=== PATIENT | male | born 1955 | race Two or more races ===

== ENCOUNTER → 2016-11-20 | Outpatient (CLI) | payer OTHER ==
[~2016-11-20] MED LIST: AMLO-218 PO; ASPI-664 PO; DARU600T3; FLUT9.9S NASAL; GABA100C; GEMF600T PO; IBUP800T25 PO; LISI2.5T59; LISI2.5T59 PO; METF-382 PO; METF500T4 PO; RALT400T4 PO; SERT100T PO; SERT50TA; TRUV PO; ULT50 PO; VENL100T19; [UNRECOGNIZED DRUG - CODE] TD
--- NOTE | 2016-11-20 23:38 | HKNOTE ---
DATE OF SERVICE: 11/20/2016 The patient comes for preoperative evaluation. He is scheduled to have operative arthroscopy on his right knee on 11/22/2016. He has been cleared for surgery by Dr. Valencia Helms. 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 He recently started ne w HIV drug, which is supposed to be very potent. The MRI scan of his knee shows that he has torn medial and lateral menisci in the posterior horns an d also fairly extensive arthritis. He is warned that the knee will not make a full recovery from th e arthroscopy, but hopefully will be improved, but no guarantees can be made. Postoperative course was discussed with him and he is given a prescription for pain management. Dictated By: ARJUN MILLER/BOOKER Conf#: [id number] DID#: [id number]
== END | disposition home or self-care (01) ==
LOC: HKI 13:56
DX: Z01.818 Encounter for other preprocedural examination (principal)
CPT/HCPCS: G0463

== ENCOUNTER 2016-11-22 06:59 | Day surgery (SDC) | payer OTHER ==
[2016-11-21 10:02] VITALS: BMI 38.3
[~2016-11-22] VITALS: Ht 160 cm; Wt 95.0 kg
[2016-11-22] VITALS (13 sets, daily range): BP systolic 119–156; BP diastolic 56–95; PULSE 82–91; RESP 14–23; Ht 160 cm; Wt 95.0 kg
[~2016-11-22 06:59] MED LIST changes: -LISI2.5T59 PO; -METF-382 PO
[2016-11-22] MEDS ORDERED: LISI2.5T59 PO (07:40)
[2016-11-22] MEDS ORDERED: METF-382 PO (07:42)
[2016-11-22] MEDS ORDERED: SERT100T PO (07:43)
[2016-11-22] MEDS ORDERED: CELECOXIB 200 MG CAP PO ONE (08:30)
[2016-11-22] MEDS ORDERED: oxyCODONE (CR) 10 MG TAB [oxyCONTIN] PO ONE (08:30)
[2016-11-22] MEDS ORDERED: VANCOMYCIN 1 GM (PMX) 250 ML IVPB ONE (08:30)
[2016-11-22] MEDS ORDERED: DEXAMETHASONE 4 MG/ML 1 ML INJ IV ONE (08:30)
[2016-11-22] MEDS ORDERED: ONDANSETRON 4 MG INJ IV ONE (08:30)
[2016-11-22] MEDS ORDERED: LANSOPRAZOLE 30 MG CAP PO ONE (08:30)
[2016-11-22] MEDS ORDERED: ACETAMINOPHEN 1000MG/100ML IV 100 ML IVPB ONE (08:30)
[2016-11-22] MEDS ORDERED: ROPIVACAINE 0.5 % 30 ML VIAL ONE (09:14)
[2016-11-22] MEDS ORDERED: BUPIVACAINE 0.25%/EPI (SDV) 30 ML INJ ONE (09:15)
[2016-11-22] MEDS ORDERED: KETOROLAC 30 MG INJ ONE (09:15)
[2016-11-22] MEDS ORDERED: morphine SULFATE/PF (10 MG/10 ML) INJ ONE (09:15)
[2016-11-22] MEDS ORDERED: PROPOFOL 20 ML ONE (09:42)
[2016-11-22] MEDS ORDERED: LIDOCAINE 2% (SDV) 5 ML INJ ONE (09:42)
[2016-11-22] MEDS ORDERED: MIDAZOLAM 1 MG/ML 2 ML INJ ONE (09:43)
[2016-11-22] MEDS ORDERED: FENTAnyl 50 MCG/ML VIAL ONE (09:53)
[2016-11-22] MEDS ORDERED: ONDANSETRON 4 MG INJ ONE (09:57)
[2016-11-22] MEDS ORDERED: METOCLOPRAMIDE 10 MG INJ ONE (09:57)
[2016-11-22] MEDS ORDERED: FAMOTIDINE 20 MG INJ ONE (09:57)
[2016-11-22] MEDS ORDERED: PHENYLephrine (100 MCG/ML) 5ML SYG ONE (09:59)
[2016-11-22] MEDS ORDERED: EPHEDrine SULFATE 50 MG/5 ML SYG ONE (10:30)
[2016-11-22] MEDS ORDERED: FENTAnyl 50 MCG/ML VIAL IV PRN (10:30)
[2016-11-22] MEDS ORDERED: HYDROmorphONE (0.2 MG/ML) 10ML SYG IV PRN (10:30)
[2016-11-22] MEDS ORDERED: oxyCODONE 5 MG TAB PO PRN ×2 (10:30)
[2016-11-22] MEDS ORDERED: MEPERIDINE 25 MG INJ IV PRN (10:30)
[2016-11-22] MEDS ORDERED: ONDANSETRON 4 MG INJ IV PRN ×2 (10:30→11:30)
[2016-11-22] MEDS ORDERED: PROCHLORPERAZINE 10 MG INJ IV PRN (10:30)
[2016-11-22] MEDS ORDERED: DIPHENHYDRAMINE 50 MG INJ IV PRN (10:30)
[2016-11-22] MEDS ORDERED: HYDROmorphONE 2 MG/ML SYG ONE (10:59)
[2016-11-22] MEDS ORDERED: KETOROLAC 15 MG INJ IM STA (11:21)
[2016-11-22] MEDS ORDERED: HYDROCODONE/APAP (10/325) TAB PO PRN (11:30)
[2016-11-22] MEDS ORDERED: ACETAMINOPHEN 1000MG/100ML IV 100 ML IVPB SCH (11:30)
[2016-11-22] MEDS ORDERED: morphine 10 MG INJ IM PRN (11:30)
--- NOTE | 2016-11-22 13:23 | OPR ---
DATE OF OPERATION: 11/22/2016 SURGEON: Raza Whittaker MD HYDROLOGY PROFESSOR: None. ANESTHESIOLOGIST: PREOPERATIVE DIAGNOSIS: Torn medial and lateral meniscus of the right knee. POSTOPERATIVE DIAGNOSES: 1. Torn medial and lateral meniscus of the right knee. 2. Severe degenerative osteoarthritis of the lateral compartment of the right knee. PROCEDURE: 1. Diagnostic arthroscopy. 2. Partial medial meniscectomy. 3. Partial lateral meniscectomy. FINDINGS AT SURGERY: The patellofemoral joint was found to be relatively normal in appearance for a man of his age. The articular surfaces of the medial compartment were relatively normal as well. The tibial plateau on the lateral side shows severe degenerative changes with complete erosion down to the subchondral bone. There was eburnation of the subchondral bone. The lateral femoral condyle showed similar changes, but to a much lesser degree. The medial meniscus showed compound tears of the posterior third. The rest of the medial meniscus was intact and normal. The lateral meniscus sh owed compound tears of the middle third. There was also a separate tear of the posterior horn/root of the lateral meniscus. The rest of the lateral meniscus was normal. Since the lateral meniscal t ears encompassed the middle third it therefore compromised the bridge of meniscus that extends over the popliteus tendon. This entire bridge section had to be removed in a subtotal way in order to ob tain stability of remaining meniscus. DESCRIPTION OF PROCEDURE: Under general anesthetic, the right leg was prepared and draped in the ual sterile fashion. A tourniquet around the right thigh was inflated to a pressure of 250 mmHg for a total period of 27 minutes. Standard inferomedial and inferolateral portals were used. The knee was systematically inspected and the above findings were noted. Using a variety of basket forceps and the motorized intraarticular shaver, a partial medial meniscec livia was performed. Remaining meniscus was balanced and stable. The camera was now moved to the la teral compartment, observing the cruciate ligaments on the way they were intact and normal in appear ance. The lateral meniscus showed compound tears of the middle third. These were highly unstable s egments of meniscus, amounting essentially to a bucket handle tear of the middle third of the menisc us. Using a variety of basket forceps and the motorized intra-articular shaver, a subtotal middle t hird meniscectomy was performed. The remaining meniscus was balanced and stable. The shaver was no w used as well on the posterior root of the lateral meniscus where a partial meniscectomy was perfor med. The remaining meniscus was balanced and stable. At the end of procedure, the knee was copiously irrigated to remove contained fragments. The wounds were closed with interrupted nylon. The knee was injected with a mixture of Duramorph and Naropin. The usual sterile dressings were applied. There were no problems or complications as far as is kn own. The patient returned to recovery room in stable condition. Dictated By: RAZA MILLER/BOOKER Conf#: [id number] DID#: [id number]
== END 2016-11-22 13:50 | disposition home or self-care (01) ==
LOC: SDS 06:59
DX: M23.261 Derangement of other lateral meniscus due to old tear or injury, right knee (principal); M23.203 Derangement of unspecified medial meniscus due to old tear or injury, right knee; I10 Essential (primary) hypertension; E11.9 Type 2 diabetes mellitus without complications; E78.5 Hyperlipidemia, unspecified; Z87.891 Personal history of nicotine dependence
CPT/HCPCS: 29880; 82962; J0131; J1100; J1170; J1885; J2250; J2274; J2370; J2405; J2765; J2795; J3010; J3370; Z7512; Z7610

== ENCOUNTER → 2016-11-26 | Outpatient (CLI) | payer OTHER ==
[~2016-11-26] MED LIST changes: -DARU600T3; -GABA100C; -IBUP800T25 PO; -LISI2.5T59; +LISI2.5T59 PO; +METF-382 PO; -METF500T4 PO; -SERT50TA; -TRUV PO; -ULT50 PO; -VENL100T19; -[UNRECOGNIZED DRUG - CODE] TD
--- NOTE | 2016-11-26 22:01 | HKNOTE ---
DATE OF SERVICE: 11/26/2016 The patient had arthroscopic surgery on his right knee on 11/22/2016. He comes in for a wound check . On physical examination, he walks with a cane. Both wounds are healing well. There is no sign o f infection. Dressings were changed. The patient will be seen again in a week's time for removal o f sutures and commencement of physical therapy. Dictated By: ARJUN MILLER/BOOKER Conf#: [id number] DID#: [id number]
== END | disposition home or self-care (01) ==
LOC: HKI 14:55
DX: Z47.89 Encounter for other orthopedic aftercare (principal); Z98.890 Other specified postprocedural states
CPT/HCPCS: G0463

== ENCOUNTER → 2016-12-03 | Outpatient (CLI) | payer OTHER ==
--- NOTE | 2016-12-03 18:39 | HKNOTE ---
DATE OF SERVICE: 12/03/2016 The patient comes in for removal of his sutures. His wounds are completely healed. He is very plea sed with the result of his surgery, has minimal pain. Sutures were removed. Steri-Strips were appl ied. He is given a prescription for physical therapy and he will be seen again as necessary for fur ther evaluation and treatment. Dictated By: ARJUN MILLER/BOOKER Conf#: [id number] DID#: [id number]
== END | disposition home or self-care (01) ==
LOC: HKI 13:57
DX: Z47.89 Encounter for other orthopedic aftercare (principal)
CPT/HCPCS: G0463

== ENCOUNTER → 2018-05-04 | Outpatient (CLI) | END | disposition home or self-care (01) ==

== ENCOUNTER → 2018-05-19 | Outpatient (CLI) | END | disposition home or self-care (01) ==